=== PATIENT | female | born 1970 | race Hispanic/Latino ===

== ENCOUNTER 2020-02-18 10:46 | Emergency (ER) | payer OTHER ==
[~2020-02-18] VITALS: Ht 149.9 cm; Wt 62.1 kg
[~2020-02-18 10:46] MED LIST: BENTYL10 MG PO; FLAGYL250 MG PO; GLIMEPIRIDE2 MG PO; LEVAQUIN500 MG PO; METFORMIN HCL500 MG PO; TRADJENTA5 MG; ZOFRAN ODT4 MG PO
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
--- OUTSIDE RECORDS SUMMARY | 2020-02-18 10:50 | XMS REPORT | Summary of Care ---
Author Author CHUY MOSELEY M.D. Organization Unknown Address [facility] Phone Unavailable Care Team Providers Care Sales Support Rep Name Role Phone SALUD Goldman, BELKIS Unavailable Unavailable PRADIP Goldman, SANAZ Unavailable Unavailable JONATHAN Goldman, JOSEPH Unavailable Unavailable HUMERA N.P., JULIETH Unavailable Unavailable SALUD STEPHENSON [place], BELKIS OLIVEIRA Unavailable Unavailable Pradip STEPHENSON, Sanaz Unavailable Unavailable MORRIS STEPHENSON [place], LEXI Unavailable Unavailable HUMERA SAS DEVELOPER, JULIETH Unavailable Unavailable NATALIE STEPHENSON [place], SARAH MARTINES Unavailable Unavailable JONATHAN STEPHENSON, JOSEPH [...] screening negative (V79.0, Z1 3.31) Status: Active Hyperlipidemia (272.4, E78.5) Status: Active [...] pain in female (625.9, R10.2) Status: Active Uncontrolled diabetes mellitus (250.02, E11.65) Status: Active Medications Name Dates Details Montelukast [...] DAY WITH MEALS * Quantity: 180 Refills: 0 SANAZ MOSELEY M.D. * Start : 05-Apr-2015 [...] FlexTouch 100 UNIT/ML Subcutaneous Solution Pen-injector inject 30 U SC qHS MDD:35 U * Quantity: 1 Refills: 2 PRADIP M.Lilly.SANAZ Active 5 x 3 ML Pen BD Pen Needle Ana U/F 32G X 4 MM use to inject insulin once daily * Quantity: 90 Refills: 0 PRADIP Melodie.SANAZ Gary * Start : 27-Nov-2017 Active Simvastatin 20 MG Oral Tablet Take 1 tab po every other day * Quantity: 90 Refills: 1 PRADIP M.Abdirahman, SANAZ * Start : 15-Jun-2018 Active Vitamin C CAPS * Refills: 0 M.A. Active Vitamin D CAPS * Refills: 0 M.A. Active Vitamin B12 TABS * Refills: 0 M.A. Active NovoLOG FlexPen 100 UNIT/ML Subcutaneous Solution Pen-injector inject 15 U SC qAC plus CF 2:50>150 mg/dL MDD:50 U * Quantity: 1 Refills: 2 PRADIP M.SANAZ Gary * Start : 14-Oct-2018 Active 5 x 3 ML Pen Accu-Chek Guide In Vitro Strip TEST 4 TIMES DAILY * Quantity: 4 Refills: 0 PRADIP M.SANAZ Gary * Start : 03-Nov-2018 Active 100 Strip Box Accu-Chek FastClix Lancets CHECK BLOOD SUGAR 4 TIMES A DAY. * Quantity: 4 Refills: 0 PRADIP M.D., SANAZ * Start : 03-Nov-2018 Active 102 Unit Box Fluconazole 150 MG Oral Tablet Take 1 tab by mouth once daily for 1 day. May take second tab if symptoms persis t in 3 days. * Quantity: 2 Refills: 0 HUMERA N.P., JULIETH * Start : 01-Aug-2019 Active Janumet XR 50-1000 MG Oral Tablet Extended Release 24 Hour TAKE 1 TABLET TWICE DAILY * Quantity: 180 Refills: 0 PRADIP M.D.SANAZ * Start : 28-Nov-2019 Active Allergies and Adverse Reactions Name Dates [...] 25-Jun-2011 Influenza on: 19-Jul-2012 Influenza Lot #: [id number] on: 18-Jul-2014 Fluzone Quadrivalent 0.5 ML Intramuscula r Suspension Lot #: [id number] on: 13-Jul-2015 Pneumococcal polysaccharide vaccine, 23 valent Lot #: [id number] on: 11-Sep-2015 Fluzone Quadrivalent 0.25 ML SUSP Lot #: [id number] on: 05-Aug-2016 Fluzone Quadrivalent 0.5 ML Intramuscula r Suspension Lot #: [id number] on: 19-Jul-2018 Fluzone Quadrivalent 0.5 ML Intramuscula r Suspension Lot #: [id number] on: 27-Jul-2019 Family History Name Dates Details [...] smoker Vital Signs Date Test Result Details :10 BP Systolic 116 mm[Hg] Status: Comments: Lo cation: LUE; Position: Sitting BP Diastolic 82 mm[Hg] Status: Comments: Lo cation: LUE; Position: Sitting Height 59 in Status: Weight 155.5625 lb Status: Body Mass Index Calculated 31.42 kg/m2 Status: Body Surface Area Calculated 1.66 m2 Status: Heart Rate 89 /min Status: Results Date Description Value Details :10 Glucose (Point of Care In Office) Glucose POC Lifescan 111 :11 [O] Hemoglobin A1c (in office) HEMOGLOBIN A1c 7.1 :45 [QLH] CBC (INCLUDES DIFF/PLT) WBC 10.3 {K/CMM} Range: 3.7-10.4 RBC 4.64 {M/CMM} Range: 4.20-5.40 Hgb 12.2 g/dl Range: 12.0-16.0 Hct 38.0 % Range: 36.0-48.0 MCV 82.0 fL Range: 80.0-98.0 MCH 26.4 pg (Below low threshold) R sue: 27.0-31.0 MCHC 32.2 g/dl Range: 32.0-36.0 RDW 15.5 % (Above high threshold) R sue: 11.5-14.5 Platelet 448 {K/CMM} Range: 133-450 Mean Platelet Volume 9.2 fL Range: 7.4- 10.4 :45 [QLH] Differential Segmented Neutrophils 65.7 % Range: 45. 0-75.0 Monocytes 5.3 % Range: 2.0-12.0 Lymphocytes 27.5 % Range: 20.0-40.0 Eosinophils 0.9 % Range: 0.0-4.0 Basophils 0.6 % Range: 0.0-1.0 Segs-Bands # 6.8 {K/CMM} Range: 1.5-8.1 Lymphocytes # 2.8 {K/CMM} Range: 1.0-5.5 Monocytes # 0.5 {K/CMM} Range: 0.0-0.8 Eosinophils # 0.1 {K/CMM} Range: 0.0-0.5 Basophils # 0.1 {K/CMM} Range: 0.0-0.2 :45 [QLH] CMP W/EGFR Sodium Level 137 {mEq/l} Range: 135-145 Potassium Level 4.6 {mEq/l} Range: 3.5-5.1 Chloride Level 101 {mEq/l} Range: 95-109 Carbon Dioxide 28 {mEq/l} Range: 24-32 AGAP 12.6 {mEq/l} Range: 10.0-20.0 Glucose Lvl 129 mg/dl (Above high threshold ) Range: 70-99 Comments: Adult reference range values reflect the clinical guidelinesof the [place] [employer]. Creatinine Lvl 0.70 mg/dl Range: 0.50-1.40 Blood Urea Nitrogen 10 mg/dl Range: 7-22 BUN/Creatinine Ratio 14 Range: 6-25 Total Protein 8.0 g/dl Range: 6.4-8.4 Albumin Lvl 3.9 g/dl Range: 3.5-5.0 Globulin 4.1 g/dl Range: 2.7-4.2 A/G Ratio 1.0 Range: 0.7-1.6 Calcium Level Total 9.6 mg/dl Range: 8.5-1 0.5 ALT 41 u/l Range: 0-65 AST 36 u/l Range: 0-37 Alk Phos 112 u/l Range: 39-136 Comments: The pediatric reference ranges for this test represent a CLSI- basedtransference of the CALIPER database of pediatric reference intervals to the[facility] [place] analyzer (Clinical Biochemistry 46 (2013): 1345-0131). [facility] has not internally validated these referenceranges and therefore they should be used only in the context of a thoroughclinical assessment. Bili Total 0.2 mg/dl Range: 0.2-1.3 eGFR 103 {ML/MIN/1.7} Comments: The eGFR is calculated using the CKD-EPI [...] eGFR shouldbe multiplied by the estimated BMI. :45 [QL] LIPID PANEL Chol 141 mg/dl Range: <=199 Trig 107 mg/dl Range: <=149 HDL Cholesterol 33 mg/dl (Below low threshold) Range: >=61 CHD Risk 4.27 Range: 3.90-5.80 LDL 87 mg/dl Range: <=99 VLDL 21 :45 [[facility]] MICROALBUMIN, RANDOM URINE (W/CREA TININE) Urine Microalbumin <5.0 mg/L Comments: No established reference range. U Creatinine 31.10 mg/dl Comments: No est ablished reference range. Urine Microalbuming Creatinine Ratio See Note Range: <=30.0 Comments: Calculated values are not available, when measured parameters are not withinthe instruments reportable limits -- Plan of Care Name Dates Details Planned Observations Planned Goals not documented Planned Encounters Appointment; SANAZ MOSELEY M.D. On: 02-Mar-2020 9:00 Instructions Name Dates Details Instructions not documented [...] Diagnosis: Problem not documented On: 01-Aug-2019 8:30 Appointment; SANAZ MOSELEY M.D. Encounter Diagnosis: Problem not documented On: 25-Nov-2019 8:00 Appointment; SANAZ MOSELEY M.D. Encounter Diagnosis: Problem not documented On: 28-Nov-2019 16:00
--- OUTSIDE RECORDS SUMMARY | 2020-02-18 10:50 | XMS REPORT | Summary of Care ---
Author Author CHUY Werner R.N. Organization Unknown Address Unknown Phone Unavailable Care Team Providers Care Priming Machine Operator Name Role Phone SALUD Goldman, BELKIS Unavailable Unavailable PRADIP Goldman, ASNAZ Unavailable Unavailable JONATHAN Goldman, JOSEPH Unavailable Unavailable Alphonso Painter, Nieves Unavailable Unavailable HUMERA N.P., JULIETH Unavailable Unavailable SALUD STEPHENSON [place], BELKIS OLIVEIRA Unavailable Unavailable Pradip STEPHENSON, Sanaz Unavailable Unavailable MORRIS STEPHENSON [place], LEXI Unavailable Unavailable HUMERA APPIAHP, JULIETH Unavailable Unavailable NATALIE STEPHENSON [place], SARAH MARTINES Unavailable Unavailable JONATHAN STEPHENSON, JOSEPH [...] Status: Active Otalgia (388.70, H92.09) Status: Active Fever (780.60, R50.9) Status: Active Acute diarrhea (787.91, R19.7) Status: Active Nausea (787.02, R11.0) Status: Active Diarrhea with dehydration (787.91, R19.7 [...] urinary frequency (788.41, R35 .0) Status: Active Urinary urgency (788.63, R39.15) Status: Active Stress incontinence, female (625.6, N39. 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 * Quantity: 2 Refills: 0 HUMERA N.P., JULIETH * Start : 16-Mar-2014 Active 25 x [...] MDD:35 U * Quantity: 1 Refills: 2 SANAZ MOSELEY M.D. Active 5 x 3 ML Pen BD Pen Needle Ana U/F 32G X 4 MM use to inject insulin once daily * Quantity: 90 Refills: 0 SANAZ MOSELEY M.D. * Start : 27-Nov-2017 [...] MDD:50 U * Quantity: 1 Refills: 2 SANAZ MOSELEY M.D. * Start : 14-Oct-2018 Active 5 x 3 ML Pen Accu-Chek Guide In Vitro Strip TEST 4 TIMES DAILY * Quantity: 4 Refills: 0 SANAZ MOSELEY M.D. * Start : 03-Nov-2018 Active 100 Strip Box Accu-Chek FastClix Lancets CHECK BLOOD SUGAR 4 TIMES A DAY. * Quantity: 4 Refills: 0 SANAZ MOSELEY M.D. * Start : 03-Nov-2018 [...] TWICE DAILY * Quantity: 180 Refills: 0 PRADIPSANAZ Escobar M.D. * Start : 28-Nov-2019 Active Allergies and [...] 25-Jun-2011 Influenza on: 19-Jul-2012 Influenza Lot #: [id number] on: 18-Jul-2014 Fluzone Quadrivalent 0.5 ML Intramuscula r Suspension Lot #: [id number] on: 13-Jul-2015 Pneumococcal polysaccharide vaccine, 23 valent Lot #: [id number] on: 11-Sep-2015 Fluzone Quadrivalent 0.25 ML SUSP Lot #: [id number] on: 05-Aug-2016 Fluzone Quadrivalent 0.5 ML Intramuscula r Suspension Lot #: [id number] on: 19-Jul-2018 Fluzone Quadrivalent 0.5 ML Intramuscula r Suspension Lot #: [id number] on: 27-Jul-2019 Family History Name Dates Details [...] Hemoglobin A1c (in office) HEMOGLOBIN A1c 7.1 Plan of Care Name Dates Details Planned [...] not documented On: 05-Oct-2018 9:30 Appointment; JOSEPH CATSILLO M.D. Encounter Diagnosis: Problem not documented On: [...]
--- OUTSIDE RECORDS SUMMARY | 2020-02-18 10:50 | XMS REPORT | Summary of Care ---
Author Author CHUY MOSELEY M.D. Organization Unknown Address [facility] Phone Unavailable Care Team Providers Care Learning And Development Administrator Name Role Phone SALUD Goldman, BELKIS Unavailable Unavailable PRADIP Goldman, SANAZ Unavailable Unavailable JONATHAN Goldman, JOSEPH Unavailable Unavailable HUMERA N.P., JULIETH Unavailable Unavailable SALUD STEPHENSON [place], BELKIS OLIVEIRA Unavailable Unavailable Pradip STEPHENSON, Sanaz Unavailable Unavailable MORRIS STEPHENSON [place], LEXI Unavailable Unavailable HUMERA COPPING MACHINE OPERATOR, JULIETH Unavailable Unavailable NATALIE STEPHENSON [place], SARAH MARTINES Unavailable Unavailable JONATHAN STEPHENSON, JOSEPH [...] days. * Quantity: 2 Refills: 0 HUMERA N.P.JULIETH * Start : 01-Aug-2019 Active Janumet XR 50-1000 MG Oral Tablet Extended Release 24 Hour TAKE 1 TABLET TWICE DAILY * Quantity: 180 Refills: 0 SANAZ MOSELEY M.D. * Start : 28-Nov-2019 Active Allergies [...] Z87.440) Status: Resolved Procedures Procedure Dates Details [QL] CMP W/EGFR Date: 28-Nov-2019 [QL] CBC (INCLUDES DIFF/PLT) Date: 28-Nov-2019 [[facility]] MICROALBUMIN, RANDOM URINE (W/CREATININE) Date: [[facility]] LIPID PANEL Date: 28-Nov-2019 History of Tubal Ligation Completed History of Tonsillectomy Completed History of Hysterectomy Completed History of Repair of bladder Completed Immunization Name Dates Details Tdap on: 25-Jun-2011 Influenza on: 19-Jul-2012 Influenza Lot #: [id number] on: 18-Jul-2014 Fluzone Quadrivalent 0.5 ML Intramuscula r Suspension Lot #: [id number] on: 13-Jul-2015 Pneumococcal polysaccharide vaccine, 23 valent Lot #: [id number] on: 11-Sep-2015 Fluzone Quadrivalent 0.25 ML SUSP Lot #: [id number] on: 05-Aug-2016 Fluzone Quadrivalent 0.5 ML Intramuscula r Suspension Lot #: [id number] on: 19-Jul-2018 Fluzone Quadrivalent 0.5 ML Intramuscula r Suspension Lot #: [id number] on: 27-Jul-2019 Family History Name Dates Details [...] smoker Vital Signs Date Test Result Details [id number] BP Systolic 116 mm[Hg] Status: Comments: Lo [...] Care In Office) Glucose POC Lifescan 111 [id number] [O] Hemoglobin A1c (in office) HEMOGLOBIN A1c 7.1 Plan of Care Name Dates Details Planned Observations Planned Goals not documented Planned Encounters Appointment; SANAZ MOSELEY M.D. On: 02-Mar-2020 9:00 Interventions Provided Medication Changes* Accu-Chek FastClix Lancets - Renew * Accu-Chek Guide In Vitro Strip - Renew * BD Pen Needle Ana U/F 32G X 4 MM - Renew * Glimepiride 4 MG Oral Tablet - Renew * Janumet XR 50-1000 MG Oral Tablet Extended Release 24 Hour - Start * NovoLOG FlexPen 100 UNIT/ML Subcutaneous Solution Pen-injector - Renew * Tresiba FlexTouch 100 UNIT/ML Subcutaneous Solution Pen-injector - Renew Labs/Procedures/Imaging* [QLH] CBC (INCLUDES DIFF/PLT); To Be Done: 28 Nov 2019 * [QLH] CMP W/EGFR; To Be Done: 28 Nov 2019 * [QLH] LIPID PANEL; To Be Done: 28 Nov 2019 * [QLH] MICROALBUMIN, RANDOM URINE (W/CREATININE); To Be Done: 28 Nov 2019 * [O] Hemoglobin A1c (in office); Done: 28 Nov 2019 * Glucose (Point of Care In Office); Done: 28 Nov 2019 Discussion/Summary* 49 yo F with DM here for f/u. * A1c is 7.1%, near goal. Rec SMBG 3-4xs daily. Patient considered stopping Trulicity and all OADs to do just insulin, explained insulin requirement will be higher and will likely gain weight. She would like to stop trulicity and metformin ER to go back to Janumet XR, tolerated it better, will start 50-1000 mg BID on Thursday, cont met ER 500 mg tabs, take 2 tabs BID until then. She reported she understood. Cont Tresiba 30 U SC daily and Novolog 15 U qAC plus CF 2:50>150 mg/dL but cautioned her regarding bolus amount and carb intake to avoid hypoglycemia. Rec mnt, exercise and weight loss. BP is good. Due for labs, will check fasting lipids, CMP, CBC and MA. F/U in 3 mos. Instructions Name Dates Details Instructions not documented [...]
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
--- OUTSIDE RECORDS SUMMARY | 2020-02-18 10:50 | XMS REPORT | Summary of Care ---
Author CHUY Vazquez Organization Unknown Address Unknown Phone Unavailable Care Team Providers Care Plumbing Service Technician Name Role Phone SALUD Goldman, BELKIS Unavailable Unavailable PRADIP Goldman, SANAZ Unavailable Unavailable Rudy MOLINA, Shira Unavailable Unavailable JONATHAN Goldman, JOSEPH Unavailable Unavailable HUMERA N.PJohnny, JULIETH Unavailable Unavailable SALUD STEPHENSON [place], BELKIS OLIVEIRA Unavailable Unavailable Pradip STEPHENSON, Sanaz Unavailable Unavailable MORRIS STEPHENSON [place], LEXI Unavailable Unavailable HUMERA POOL, JULIETH Unavailable Unavailable NATALIE STEPHENSON [place], SARAH MARTINES Unavailable Unavailable JONATHAN STEPHENSON, JOSEPH [...] DIRECTED * Quantity: 1 Refills: 0 HUMERA N.P.JULITEH * Start : 02-Nov-2017 Active 21 Tablet [...] N.P., JULIETH * Start : 01-Aug-2019 Active Allergies [...] 25-Jun-2011 Influenza on: 19-Jul-2012 Influenza Lot #: [id number] on: 18-Jul-2014 Fluzone Quadrivalent 0.5 ML Intramuscula r Suspension Lot #: [id number] on: 13-Jul-2015 Pneumococcal polysaccharide vaccine, 23 valent Lot #: [id number] on: 11-Sep-2015 Fluzone Quadrivalent 0.25 ML SUSP Lot #: [id number] on: 05-Aug-2016 Fluzone Quadrivalent 0.5 ML Intramuscula r Suspension Lot #: [id number] on: 19-Jul-2018 Fluzone Quadrivalent 0.5 ML Intramuscula r Suspension Lot #: [id number] on: 27-Jul-2019 Family History Name Dates Details [...] Planned Encounters Appointment; SANAZ MOSELEY M.D. On: 28-Nov-2019 16:00 Interventions Provided Discussion/Summary* Guideline Used: * Other: No guideline * [facility] * Patient requests callback to arrange financial assistance with cost of appt today. Task sent to [facility] motel front desk attendant team. * Intended Caller Action: * Other: financial assitance Instructions Name Dates Details Instructions not documented [...]
--- OUTSIDE RECORDS SUMMARY | 2020-02-18 10:50 | XMS REPORT | Summary of Care ---
Author Author CHUY Martin R.N. Organization Unknown Address [facility] Phone Unavailable Care Team Providers Care Automotive Fleet Supervisor Name Role Phone SALUD Goldman, BELKIS Unavailable Unavailable PRADIP oGldman, SANAZ Unavailable Unavailable JONATHAN Goldman, JOSEPH Unavailable Unavailable HUMERA N.P., JULIETH Unavailable Unavailable SALUD STEPHENSON [place], BELKIS OLIVEIRA Unavailable Unavailable Pradip STEPHENSON, Sanaz Unavailable Unavailable MORRIS STEPHENSON [place], LEXI Unavailable Unavailable HUMERA POOL, JULIETH Unavailable Unavailable NATALIE STEPHENSON [place], SARAH MARTINES Unavailable Unavailable JONATHAN STEPHENSON, JOSEPH [...] DIRECTED * Quantity: 1 Refills: 0 HUMERA N.P.JULIETH * Start : 02-Nov-2017 Active 21 Tablet [...] 25-Jun-2011 Influenza on: 19-Jul-2012 Influenza Lot #: [id number] on: 18-Jul-2014 Fluzone Quadrivalent 0.5 ML Intramuscula r Suspension Lot #: [id number] on: 13-Jul-2015 Pneumococcal polysaccharide vaccine, 23 valent Lot #: [id number] on: 11-Sep-2015 Fluzone Quadrivalent 0.25 ML SUSP Lot #: [id number] on: 05-Aug-2016 Fluzone Quadrivalent 0.5 ML Intramuscula r Suspension Lot #: [id number] on: 19-Jul-2018 Fluzone Quadrivalent 0.5 ML Intramuscula r Suspension Lot #: [id number] on: 27-Jul-2019 Family History Name Dates Details [...] smoker Vital Signs Date Test Result Details [id number] BP Systolic 116 mm[Hg] Status: Comments: Lo cation: LUE; Position: Sitting BP Diastolic 82 mm[Hg] Status: Comments: Lo cation: LUE; Position: Sitting Height 59 in Status: Weight 155.5625 lb Status: Body Mass Index Calculated 31.42 kg/m2 Status: Body Surface Area Calculated 1.66 m2 Status: Heart Rate 89 /min Status: Results Date Description Value Details Results not documented Plan of Care Name Dates Details Planned Observations Planned Goals not documented Instructions Name Dates Details Instructions not documented [...] not documented On: 28-Mar-2019 9:30 Appointment; LEXI CACERSE M.D. Encounter Diagnosis: Problem not documented On: [...]
--- OUTSIDE RECORDS SUMMARY | 2020-02-18 10:50 | XMS REPORT | Summary of Care ---
Author Author CHUY MOSELEY M.D. Organization Unknown Address [facility] Phone Unavailable Care Team Providers Care Mold Operator Name Role Phone SALUD Goldman, BELKIS Unavailable Unavailable PRADIP Goldman, SANAZ Unavailable Unavailable JONATHAN Goldman, JOSEPH Unavailable Unavailable HUMERA N.P., JULIETH Unavailable Unavailable SALUD STEPHENSON [place], BELKIS OLIVEIRA Unavailable Unavailable Pradip STEPHENSON, Sanaz Unavailable Unavailable MORRIS STEPHENSON [place], LEXI Unavailable Unavailable HUMERA JAVA SCALA DEVELOPER, JULIETH Unavailable Unavailable NATALIE STEPHENSON [place], SARAH MARTINES Unavailable Unavailable JONATHAN STEPHENSON, JOSEPH [...] 25-Jun-2011 Influenza on: 19-Jul-2012 Influenza Lot #: [id number] on: 18-Jul-2014 Fluzone Quadrivalent 0.5 ML Intramuscula r Suspension Lot #: [id number] on: 13-Jul-2015 Pneumococcal polysaccharide vaccine, 23 valent Lot #: [id number] on: 11-Sep-2015 Fluzone Quadrivalent 0.25 ML SUSP Lot #: [id number] on: 05-Aug-2016 Fluzone Quadrivalent 0.5 ML Intramuscula r Suspension Lot #: [id number] on: 19-Jul-2018 Fluzone Quadrivalent 0.5 ML Intramuscula r Suspension Lot #: [id number] on: 27-Jul-2019 Family History Name Dates Details [...] Appointment; SANAZ MOSELEY M.D. On: 28-Nov-2019 16:00 Instructions Name Dates Details Instructions not documented [...]
[2020-02-18] MEDS ORDERED: SODIUM CHLORIDE 0.9% 1000ML 1,000 ML IV STA (12:03)
[2020-02-18] MEDS ORDERED: SODIUM CHLORIDE FLUSH 10 ML SYR INJ PRN (12:15)
[2020-02-18 12:19] LABS: BASOPHILS % 0.4 % (0.0-1.0); EOSINOPHILS % 0.3 % (0.0-6.0); HEMATOCRIT 38.6 % (34.2-44.1); HEMOGLOBIN 12.1 g/dL (12.0-16.0); LYMPHOCYTES # (AUTO) 2.7 (1.0-3.2); LYMPHOCYTES % 25.1 % (18.0-39.1); MEAN CORPUSCULAR HEMOGLOBIN 25.6 pg (28-32); MEAN CORPUSCULAR HGB CONC 31.3 g/dL (31-35); MEAN CORPUSCULAR VOLUME 81.8 fL (81-99); MONOCYTES # (AUTO) 0.6 (0.2-0.8); MONOCYTES % 5.4 % (4.4-11.3); NEUTROPHILS # (AUTO) 7.3 (2.1-6.9); NEUTROPHILS % 68.2 % (38.7-80.0); PLATELET COUNT 435 x10e3/uL (140-360); RED BLOOD COUNT 4.72 x10e6/uL (3.6-5.1); RED CELL DISTRIBUTION WIDTH 15.9 % (11.7-14.4)
[2020-02-18 12:23] LABS: CLARITY,URINE CLEAR (CLEAR); COLOR,URINE YELLOW (YELLOW)
[2020-02-18 12:24] LABS: BILIRUBIN,URINE NEGATIVE (NEGATIVE); KETONES,URINE NEGATIVE (NEGATIVE); LEUKOCYTE ESTERASE ,URINE NEGATIVE (NEGATIVE); NITRITE,URINE NEGATIVE (NEGATIVE); PROTEIN,URINE DIPSTICK NEGATIVE (NEGATIVE); URINE UROBILINOGEN 0.2 mg/dL (0.2 - 1)
[2020-02-18] MEDS ORDERED: ONDANSETRON HCL INJ 2MG/ML 2ML 2 MG/ML VIAL IV NR (12:30)
[2020-02-18 12:33] LABS: BACTERIA,URINE FEW /HPF; EPITHELIAL CELLS,URINE FEW /LPF; RBC,URINE 0-5 /HPF (0-5); WBC,URINE (MAN) 0-5 /HPF (0-5)
[2020-02-18 12:37] LABS: ALANINE AMINOTRANSFERASE 55 IU/L (0-55); ALBUMIN 4.1 g/dL (3.5-5.0); ALBUMIN/GLOBULIN RATIO 0.9 (0.8-2.0); ALKALINE PHOSPHATASE 124 IU/L (40-150); BLOOD UREA NITROGEN 13 mg/dL (7-26); BUN/CREATININE RATIO 17 (6-25); CALCIUM 9.6 mg/dL (8.4-10.2); CARBON DIOXIDE 26 mmol/L (22-29); CHLORIDE 100 mmol/L (98-107); CREATININE, SERUM 0.75 mg/dL (0.57-1.11); EST GLOMERULAR FILTRATION RATE > 60 ML/MIN (60-); GLUCOSE 200 mg/dL (74-118); LIPASE 32 U/L (8-78); SODIUM 137 mmol/L (136-145)
[2020-02-18] MEDS ORDERED: LOMOTIL TABLET1 EACH PO (16:16)
[2020-02-18] MEDS ORDERED: CIPRO500 MG PO (16:16)
[2020-02-18] MEDS ORDERED: METRONIDAZOLE500 MG PO (16:16)
[2020-02-18] MEDS ORDERED: IBUPROFEN600 MG PO (16:16)
[2020-02-18] MEDS ORDERED: ONDANSETRON ODT8 MG PO (16:16)
== END 2020-02-18 16:37 | disposition home or self-care (01) ==
LOC: ER 10:46
DX: E11.65 Type 2 diabetes mellitus with hyperglycemia (principal); K52.9 Noninfective gastroenteritis and colitis, unspecified; E86.0 Dehydration
CPT/HCPCS: 36415; 80053; 81001; 83690; 85025; 99284; J2405; J7030

== ENCOUNTER 2022-08-20 10:27 | Emergency (ER) | payer OTHER ==
[~2022-08-20] VITALS: Ht 149.9 cm; Wt 62.1 kg
[~2022-08-20 10:27] MED LIST changes: +CIPRO500 MG PO; +IBUPROFEN600 MG PO; +LOMOTIL TABLET1 EACH PO; +METRONIDAZOLE500 MG PO; +ONDANSETRON ODT8 MG PO
[2022-08-20] MEDS ORDERED: SODIUM CHLORIDE 0.9% 1000ML 1,000 ML IV STA (10:53)
[2022-08-20] MEDS ORDERED: ONDANSETRON HCL INJ 2MG/ML 2ML 2 MG/ML VIAL IV PRN (11:00)
[2022-08-20 11:07] LABS: BASOPHILS # (AUTO) 0.1 (0.0-0.1); BASOPHILS % 0.4 % (0.0-1.0); EOSINOPHILS # (AUTO) 0.2 (0.0-0.4); EOSINOPHILS % 1.6 % (0.0-6.0); HEMATOCRIT 39.7 % (34.2-44.1); HEMOGLOBIN 12.1 g/dL (12.0-16.0); LYMPHOCYTES # (AUTO) 3.2 (1.0-3.2); LYMPHOCYTES % 28.1 % (18.0-39.1); MEAN CORPUSCULAR HEMOGLOBIN 25.6 pg (28-32); MEAN CORPUSCULAR HGB CONC 30.5 g/dL (31-35); MEAN CORPUSCULAR VOLUME 83.9 fL (81-99); MONOCYTES # (AUTO) 0.6 (0.2-0.8); MONOCYTES % 5.3 % (4.4-11.3); NEUTROPHILS # (AUTO) 7.2 (2.1-6.9); NEUTROPHILS % 64.3 % (38.7-80.0); PLATELET COUNT 432 x10e3/uL (140-360); RED BLOOD COUNT 4.73 x10e6/uL (3.6-5.1); RED CELL DISTRIBUTION WIDTH 16.4 % (11.7-14.4)
[2022-08-20 11:16] LABS: CLARITY,URINE CLEAR (CLEAR); COLOR,URINE YELLOW (YELLOW); KETONES,URINE NEGATIVE (NEGATIVE); LEUKOCYTE ESTERASE ,URINE NEGATIVE (NEGATIVE); NITRITE,URINE NEGATIVE (NEGATIVE); PROTEIN,URINE DIPSTICK NEGATIVE (NEGATIVE); URINE UROBILINOGEN 0.2 mg/dL (0.2 - 1)
[2022-08-20 11:28] LABS: ANION GAP 15.3 mmol/L (8-16); CALCIUM 9.4 mg/dL (8.4-10.2); CREATININE, SERUM 0.72 mg/dL (0.57-1.11); POTASSIUM 4.3 mmol/L (3.5-5.1)
[2022-08-20 11:34] LABS: BACTERIA,URINE MODERATE /HPF; EPITHELIAL CELLS,URINE MODERATE /LPF; WBC,URINE (MAN) 0-5 /HPF (0-5)
[2022-08-20] MEDS ORDERED: PROMETHAZINE 12.5MG/ NACL 0.9% 12.5 MG/50 ML BAG IV ONE (13:15)
[2022-08-20] MEDS ORDERED: OMEPRAZOLE40 MG PO (13:20)
[2022-08-20] MEDS ORDERED: PROMETHAZINE12.5 M1 PO (13:22)
[2022-08-20 13:26] VITALS: BP 134/71
== END 2022-08-20 13:35 | disposition home or self-care (01) ==
LOC: ER 10:33
DX: R10.11 Right upper quadrant pain (principal); R11.0 Nausea; E11.65 Type 2 diabetes mellitus with hyperglycemia; E78.5 Hyperlipidemia, unspecified
CPT/HCPCS: 36415; 76705; 80053; 81001; 83690; 84702; 85025; 99284; J2405; J2550; J7030